=== PATIENT | male | born 1955 | race Caucasian/White ===

== ENCOUNTER 2017-03-14 08:13 | Day surgery (SDC) | payer OTHER, MEDICARE ==
[2017-03-08 16:28] VITALS: BMI 19.0
--- NOTE | 2017-03-09 11:34 | PAT Medication Instructions ---
Service Date Mar 09, 2017. Current Home Medication List Amlodipine (Norvasc), 5 MG PO BID Azathioprine (Imuran), 50 MG PO QAM Calcium Acetate (Phoslo 667 Mg), 2 CAP PO WSNACKS Calcium Acetate (Phoslo 667 Mg), 3 CAPSULES PO WM Cetirizine (Zyrtec), 10 MG PO QAM Cholecalciferol (Vitamin D3), 1,000 UNIT PO QAM Cyanocobalamin (Vitamin B12), 1,000 MG PO QAM Doxazosin Mesylate (Doxazosin), 4 MG PO QPM Losartan Potassium (Cozaar), 50 MG PO BID Metoprolol Succinate (Toprol Xl), 25 MG PO QAM Ranitidine (Zantac), 150 MG PO QAM Trazodone Hcl (Trazodone), 50 MG PO HS Medication Instructions For Your Scheduled Surgery - Check with surgeon/prescribing physician for instructions: Azathioprine (Imuran), 50 MG PO QAM - Hold the following medications 24 hours prior to surgery: Losartan Potassium (Cozaar), 50 MG PO BID - Hold the following medications the morning of surgery: Ranitidine (Zantac), 150 MG PO QAM Cholecalciferol (Vitamin D3), 1,000 UNIT PO QAM Cyanocobalamin (Vitamin B12), 1,000 MG PO QAM Cetirizine (Zyrtec), 10 MG PO QAM Calcium Acetate (Phoslo 667 Mg), 2 CAP PO WSNACKS Calcium Acetate (Phoslo 667 Mg), 3 CAPSULES PO WM - Take the following medications the morning of surgery with a sip of water: Amlodipine (Norvasc), 5 MG PO BID Metoprolol Succinate (Toprol Xl), 25 MG PO QAM - Take the following medications as scheduled the night before surgery: Trazodone Hcl (Trazodone), 50 MG PO HS Doxazosin Mesylate (Doxazosin), 4 MG PO QPM Amlodipine (Norvasc), 5 MG PO BID If you have any questions please call us at [phone] or [phone] or [phone]
--- NOTE | 2017-03-09 12:21 | DIAGNOSTIC IMAGING REPORT ---
CHEST 2 VIEWS ROUTINE HISTORY: 61 years-old Male pat preoperative exam without acute chest complaints. COMPARISON: Chest CT 12/22/2014, chest radiograph 01/07/2015 TECHNIQUE: PA and lateral views of the chest FINDINGS: Emphysema and hyperinflation. Mild background interstitial coarsening. Postsurgical changes of the medial left upper lung with surgical suture material noted. Mild biapical pleural-parenchymal scarring without pneumothorax, pleural effusion, focal airspace consolidation. No overt pulmonary edema. The bones appear grossly intact. IMPRESSION: Emphysema without acute cardiopulmonary process. The above report was generated using voice recognition software. It may contain grammatical, syntax or spelling errors. Electronically signed by: Santos Villasenor M.D. 03/09/2017 12:20 PM Dictated Date/Time: 03/09/2017 12:18 PM
[2017-03-09 12:35] LABS: BASO % 0.8 %; BASO ABS # 0.03 K/uL (0-0.2); COMPLETE YES; EOS % 4.3 %; HEMATOCRIT 32.9 % (42-52); IG% 0.3 %; LYMPH % 16.3 %; LYMPH ABS # 0.65 K/uL (1.2-3.4); MEAN CELL VOLUME 90.6 fL (80-100); MEAN CORPUSCULAR HEMOGLOBIN 31.1 pg (25-34); MEAN CORPUSCULAR HGB CONC 34.3 g/dl (32-36); MEAN PLATELET VOLUME 10.3 fL (7.4-10.4); NEUT % 70.3 %; PLATELET COUNT 211 K/uL (130-400); RED BLOOD COUNT 3.63 M/uL (4.7-6.1); WHITE BLOOD COUNT 3.98 K/uL (4.8-10.8)
[2017-03-09 12:38] LABS: PROTHROMBIN TIME (PATIENT) 10.2 SECONDS (9.0-12.0)
[2017-03-09 13:10] LABS: BUN/CREATININE RATIO 5.5 (10-20); CALCIUM 9.3 mg/dl (8.5-10.1); CREATININE 14.4 mg/dl (0.60-1.40); POTASSIUM 4.8 mmol/L (3.5-5.1)
[~2017-03-14] VITALS: Ht 175.3 cm; Wt 60.9 kg
--- NOTE | 2017-03-14 05:41 | History and Physical ---
History & Physical Date of Service Mar 14, 2017. History & Physical Chief Complaint: Malfunctioning av fistula right arm History of Present Illness The patient is a 59 year old male with hx of HTN, CKD, and throat ca, who had a right wrist av fistula done for worsening kidney function. It did not mature well and needs revision. Denies BAKER, fever, chills, chest pain, SOB, abd pain, N /V, rest pain, claudication, other complaints. Pt wearing LUE restricted limb wristband for AVF creation. Allergies No Known Allergies (Unverified , 03/28/13) Surgical / Medical History Hx Cardiac Surgery: No Hx Abdominal Surgery: Yes (HERNIA SURGERY X 3) Hx Cancer Surgery: Yes (BIOPSY) Hx Thoracic Surgery: No Hx Orthopedic: No Hx Urinary Tract Surgery: No Past Medical/Surgical History: Cancer, Hypertension, Kidney Disease Family History Noncontributory Social History Smoking Status: Former Smoker Hx Tobacco Use In Past Year?: No Hx Alcohol Use - Type & Amnt: No (social) Hx Substance Use -Type & Amnt: No Review of Systems Constitutional: No chills, No fever, No malaise Skin: No change in color Eyes: No visual changes ENMT: No sore throat Respiratory: No BUTLER, No cough, No hemoptysis, No short of breath Cardiovascular: No chest pain, No edema, No intermittent claudication, No palpitations, No syncope Gastrointestinal: No abdominal pain, No diarrhea, No nausea, No vomiting Neurologic: No headache, No lethargy, No numbness, No tingling, No weakness Physical Exam: Constitutional: General Apperance: well-nourished, well-developed Level of Distress: chronically ill (mildly) Ambulation: ambulating normally Psychiatric: Mental Status: active & alert, normal mood, normal affect Orientation: oriented except where noted, to time, to place, to person Memory: recent memory normal, remote memory normal Head: normocephalic, atraumatic Eyes: EOM: EOMI ENMT: normal ENT inspection, hearing grossly normal Neck: supple, trachea midline Lungs: Respiratory effort: no dyspnea Auscultation: no wheezing, no rales/crackles, no rhonchi, decreased breath sounds Cardiovascular: Apical Impulse: not displaced Heart Auscultation: RRR, no murmurs, no rubs, no gallops Peripheral Pulses: Pulses: full and equal, in all extremities except if noted Bruits: none appreciated Carotid Pulse: normal on the left, normal on the right Brachial Pulses: normal on the left, normal on the right Radial Pulse: normal on the left, normal on the right Femoral Pulse: normal on the left, normal on the right Posterior Tibialis Pulse: decreased on the left, decreased on the right Dorsalis Pedis Pulse: decreased on the left, decreased on the right Abdomen: Bowel Sounds: normal Inspection & Palpation: soft, non-distended, no tenderness, guarding & rebound Musculoskeletal: normal strength (5/5 throughout), normal tone Extremities: Upper Right: no cyanosis, no edema, no varicosities, thrill present Upper Left: no cyanosis, no edema, no varicosities Lower Right: no cyanosis, no edema, no varicosities Lower Left: no cyanosis, no edema, no varicosities Neurologic: Cranial Nerves: grossly intact Sensation: grossly intact ASSESSMENT and PLAN: Imp: End stage renal disease Malfunctioning fistula Plan: Patient is admitted for a revision of his right arm avf. I have discussed the risks options and benefits of the procedure with the patient. The patient understands the risks options and benefits and agrees to the procedure.
[~2017-03-14 08:13] MED LIST: AMLO-114 PO; AZAT50TA17 PO; CALC667C4 PO; CEFAZOLIN 1000MG IV PUSH 5 ML IV SCH; CETI10TA84 PO; CHOL1CAP57 PO; CYAN100020 PO; DOXA4TAB5 PO; LOSA50TA54 PO; METO25TA3 PO; SODIUM CHLORIDE 0.9% 1000ML 1,000 ML IV SCH; TRAZ50TA35 PO; ZNTT/150 PO
[2017-03-14 08:44] VITALS: BP 144/59; PULSE 59; TEMP 36.4; O2SAT 97; Ht 175.3 cm; Wt 60.9 kg
[2017-03-14 09:11] LABS: CREATININE 14.8 mg/dl (0.60-1.40)
[2017-03-14 09:12] LABS: BUN/CREATININE RATIO 5.6 (10-20); CALCIUM 9.5 mg/dl (8.5-10.1); POTASSIUM 4.2 mmol/L (3.5-5.1)
[2017-03-14] MEDS ORDERED: THROMBIN FOR SOLN 20000 UNIT KIT ONE (11:16)
[2017-03-14] MEDS ORDERED: LIDOCAINE HCL 1% 20 ML VIAL ONE (11:16)
[2017-03-14] MEDS ORDERED: GELATIN SPONGE 12-7MM ONE (11:16)
[2017-03-14] MEDS ORDERED: HEPARIN SOD (PORCINE) 1000 UNIT/ML 10 ML VIAL ONE (11:16)
[2017-03-14] MEDS ORDERED: BUPIVACAINE 0.5 % 5 MG/1 ML MPF 30ML VIAL ONE (11:17)
[2017-03-14] MEDS ORDERED: EpINEphrine INJ 1MG/ML AMP 1 MG/ML AMP ONE (11:18)
--- NOTE | 2017-03-14 12:23 | History & Physical Bridge Note ---
H&P Re-Evaluation Bridge Note: I have examined the patient, reviewed the History & Physical and in the interval since the performance of the History & Physical I have noted the following changes of clinical significance: No changes noted
[2017-03-14] MEDS ORDERED: ONDANSETRON INJ 2 MG/ML 2 ML VIAL IV PRN (13:00)
[2017-03-14] MEDS ORDERED: FENTANYL CITRATE INJ 50 MCG/1 ML 2 ML VIAL IV PRN (13:00)
[2017-03-14] MEDS ORDERED: EpHEDrine SULFATE INJ 50 MG/ML AMP IV PRN (13:00)
[2017-03-14] MEDS ORDERED: ATROPINE SULFATE 0.1 MG/ML 5ML SYR IV PRN (13:00)
--- NOTE | 2017-03-14 13:25 | [facility] Operative Report ---
Operative Report Operative Date Mar 14, 2017. Pre-Operative Diagnosis End-stage renal disease, malfunctioning fistula Post-Operative Diagnosis End-stage renal disease, malfunctioning fistula Procedure(s) Performed Right Upper Extremity Arteriovenous Fistula Revision Surgeon Dr. 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 It is causing him some discomfort. Revision was recommende. He understood the risks options and benefits and agreed to go ahead with the procedure. Description of Procedure The patient was taken to the operating and placed in the supine position. The right arm arm was then prepped and draped in a sterile manner. Local anesthetic was administered. A A longitudinal incision was made around the side of the venous aneurysm up to normal fistula vein. The venous aneurysm was isolated. There was a proximal portion of the fistula which was normal size just beyond the arterial anastomosis. Dissection was carried upward until the aneurysm was entirely freed. The proximal portion of the fistula just beyond the aneurysm was also freed up. The neck of the aneurysm between the arterial anastomosis and the venous aneurysm was ligated. This was then divided. A clamp was then placed on the fistula more distally. The radial artery was then exposed. The venous portion of the fistula beyond the aneurysm was then transected. An anastomosis was then accomplished between the cephalic vein and the radial artery using a 6-0 Prolene suture in usual vascular fashion. Prior to completing the closure back bleeding and fore bleeding was allowed to occur. The final few sutures were then placed and securely tied. Clamps are removed and excellent flow was seen. There was a good Doppler signals heard in the palmar arch of the right hand. Adequate hemostasis was noted. The incision was then closed in usual fashion using running 3-0 Vicryl suture for the subcutaneous layer and a running 4-0 subcuticular suture of 0 Vicryl for the skin edges. Dermabond was used for dressing. The patient left the operating room in satisfactory condition and tolerated the procedure well. Tracy Mosley Pac assisted due to lack of resident availability and was necessary for prepping, draping, retraction, wound closure defects, subQ and skin closure and was necessary for the case. I attest to the content of the Intraoperative Record and any orders documented therein. Any exceptions are noted below.
[2017-03-14] MEDS ORDERED: TRAM-10 PO (13:53)
--- NOTE | 2017-03-14 13:55 | Discharge Instructions ---
Discharge Instructions Date of Service Mar 14, 2017. Visit Reason for Visit: Right Upper Extremity Arteriovenous Venous Aneurys Discharge Discharge Diagnosis / Problem: Areteriovenous fistla venous aneurysm Discharge Goals Goal(s): Therapeutic intervention Activity Recommendations Activity Limitations: per Instructions/Follow-up section Anesthesia . Post Anesthesia Instructions: If you have had General Anesthesia or IV Sedation: * Do not drive today. * Resume driving when surgeon permits. * Do not make important decisions or sign legal documents today. * Call surgeon for: 1. Temperature elevations greater than 101 degrees F. 2. Uncontrollable pain. 3. Excessive bleeding. 4. Persistent nausea and vomiting. 5. Medication intolerance (nausea, vomiting or rash). * For nausea and vomiting use only clear liquids such as: tea, soda, bouillon until nausea subsides, then gradually increase diet as tolerated. * If you have any concerns or questions, call your surgeon's office. If physician is unavailable and it is an emergency, call 911 or go to the nearest emergency room. . Instructions / Follow-Up Instructions / Follow-Up Call [phone] to schedule a follow up appointment if one not already scheduled. ACTIVITY RECOMMENDATIONS: See Above SPECIAL CARE INSTRUCTIONS: Call your doctor if: * Temperature above 101 degrees * Pain not relieved by pain medicine ordered * There is increased drainage or redness from any incision * You have any unanswered questions or concerns. Diet Recommendations Recommended Home Diet: resume previous diet Procedures Procedures Performed: Right Upper Extremity Arteriovenous Fistula Revision Pending Studies Studies pending at discharge: no Medical Emergencies . Who to Call and When: Medical Emergencies: If at any time you feel your situation is an emergency, please call 911 immediately. . Non-Emergent Contact Non-Emergency issues call your: Surgeon . . "Provider Documentation" section prepared by Ish Hernandez. .
[2017-03-14 14:05] VITALS: BP 121/65; PULSE 48; TEMP 36.6; O2SAT 96
--- NOTE | 2017-03-14 14:13 | Progress Note ---
Progress Note Date of Service Mar 14, 2017. Progress Note I assisted Dr Hernandez with Vicente Renteria's Right Upper Extremity Arteriovenous Fistula Revision on 03/14/17, d/t lack of resident availability.
--- NOTE | 2017-03-14 14:13 | Anesthesiology Progress Note ---
Anesthesia Post Op Note Date & Time Mar 14, 2017 at 14:13 Vital Signs Pain Intensity: 0 Vital Signs Past 12 Hours Date Time Temp Pulse Resp B/P (MAP) Pulse Ox O2 Delivery O2 Flow Rate FiO2 03/14/17 13:55 36.4 47 16 105/57 94 Room Air 03/14/17 13:45 48 16 100/57 93 Room Air 03/14/17 13:36 36.5 51 16 100/66 99 Room Air 03/14/17 08:44 36.4 59 18 144/59 (87) 97 Room Air Notes Mental Status: alert / awake / arousable, participated in evaluation Pt Amnestic to Procedure: Yes Nausea / Vomiting: adequately controlled Pain: adequately controlled Airway Patency, RR, SpO2: stable & adequate BP & HR: stable & adequate Hydration State: stable & adequate Anesthetic Complications: no major complications apparent
[2017-03-14 14:35] VITALS: BP 144/69; PULSE 46; TEMP 36.5; O2SAT 96
== END 2017-03-14 13:39 | disposition home or self-care (01) ==
LOC: C.ACU 08:13
PROVIDERS: ATTEND Surgery Vascular Surgery
DX: T82.898A Other specified complication of vascular prosthetic devices, implants and grafts, initial encounter (principal); Y84.8 Other medical procedures as the cause of abnormal reaction of the patient, or of later complication, without mention of misadventure at the time of the procedure; N18.6 End stage renal disease; I12.0 Hypertensive chronic kidney disease with stage 5 chronic kidney disease or end stage renal disease; Z88.5 Allergy status to narcotic agent; J44.9 Chronic obstructive pulmonary disease, unspecified; Z68.20 Body mass index [BMI] 20.0-20.9, adult; Z98.890 Other specified postprocedural states; Z87.891 Personal history of nicotine dependence; Z99.2 Dependence on renal dialysis; Z85.21 Personal history of malignant neoplasm of larynx